=== PATIENT | male | born 1960 | race Caucasian/White ===

== ENCOUNTER 2019-02-05 12:46 | Observation (INO) ==
[2019-02-05] MEDS ORDERED: IOPAMIDOL 100 ML BOTTLE IV ONE (12:47)
[2019-02-05] MEDS ORDERED: ONDANSETRON 4 MG/2 ML VIAL IV ONE ×2 (13:06→17:31)
[2019-02-05] MEDS ORDERED: 0.9 % SODIUM CHLORIDE 1,000 ML IV ONE (13:06)
[2019-02-05] MEDS ORDERED: LACTATED RINGERS 1,000 ML IV ONE ×2 (13:25→15:11)
[2019-02-05] MEDS: HYDROmorphone 2 MG/ML VIAL IV PRN ×3 (13:48→18:41)
[2019-02-05 14:06] LABS: ALT/SGPT 19 U/l (0-40); AST/SGOT 23 U/l (0-37); Albumin 4.3 gm/dL (3.2-5.2); Albumin/Globulin Ratio 1.3 (1.0-2.3); Alkaline Phosphatase 69 U/L (39-117); Bilirubin,Total 0.5 mg/dL (0.0-1.0); Blood Urea Nitrogen 13 mg/dl (6-20); Calcium 9.4 mg/dl (8.6-10.4); Carbon Dioxide 19 mmol/L (22-30); Chloride 103 mmol/L (96-108); Globulin 3.4 gm/dL (2.2-3.7); Glomerular Filtration Rate 94; Glucose 133 mg/dL (70-105)
[2019-02-05 14:07] LABS: Basophils % (Auto) 0 % (0.0-2.0); Hematocrit 42.7 % (41.0-55.0); Hemoglobin 14.3 g/dL (13.5-16.5); Mean Cell Volume 82.9 fL (80.0-100.0); Mean Corpuscular HGB Conc 33.5 g/dL (31.0-36.0); Mean Platelet Volume 9.2 fL (7.4-10.4); Platelet Count 177 K/mcL (140-440); RBC 5.16 M/mcL (4.50-5.90)
--- NOTE | 2019-02-05 15:06 | Cat Scan Report ---
CLINICAL INFORMATION: Nausea and vomiting. Severe abdominal pain. TECHNIQUE: Axial postcontrast enhanced images through the abdomen and pelvis. Sagittal and coronal reformatted images COMPARISON: Previous examination dated 07/31/2013 FINDINGS: Lung bases: Negative. No parenchymal infiltrate or mass. No pleural fluid. There is no pericardial fluid. Liver: Negative. No focal intrahepatic abnormality. Liver contour is smooth. No evidence for cirrhosis. Gallbladder, biliary: No calcified gallstones. No dilated bile ducts Spleen: Negative. No splenomegaly. Normal enhancement splenic and portal veins Pancreas: Negative. No pancreatic mass. No peripancreatic abnormality Adrenal glands: Negative Kidneys, ureters, bladder: Kidneys are negative. No solid or cystic mass. No hydronephrosis. No hydroureter. No renal or ureteral stones. No bladder calculi Gastrointestinal: There is sigmoid diverticulosis. No pericolonic inflammatory change. No evidence for diverticulitis. Previous appendectomy. No detectable colonic mass. Small bowel is negative. No mechanical small bowel obstruction. Stomach is negative. No gastric distention. Lymphatic: No retroperitoneal or mesenteric lymphadenopathy. No inguinal adenopathy musculoskeletal: Normal lumbar vertebral body heights. No compression deformities. Sacrum and pelvis are negative. Hips are negative. Abdominal wall: There is a right inguinal hernia containing only mesenteric fat. There is infiltration of subcutaneous fat surrounding the right femoral artery and vein. No focal fluid collection. There is no pathologic adenopathy. No evidence for pseudoaneurysm or hematoma. Significance is not certain. Clinical correlation for history of previous femoral puncture recommended. Vascular: Atherosclerotic calcification of the abdominal aorta. No abdominal aortic aneurysm IMPRESSION: 1. Infiltration of subcutaneous fat in the right lower quadrant and surrounding the right femoral artery and vein 2. No acute intra-abdominal abnormality Interpreted and Authenticated by: Dayron Chen 02/05/19
[2019-02-05] MEDS ORDERED: PROMETHAZINE 25 MG/ML VIAL IV ONE (15:11)
[2019-02-05] MEDS ORDERED: PROCHLORPERAZINE 10 MG/2 ML VIAL IV ONE (17:31)
--- NOTE | 2019-02-05 17:34 | Emergency Department Note ---
Nausea/Vomiting/Diarrhea HPI - General Chief complaint: Nausea/Vomiting/Diarrhea Stated complaint: nausea/vomiting x3 hours Time Seen by Provider: 02/05/19 13:00 Source: patient Mode of arrival: wheelchair Limitations: no limitations - History of Present Illness HPI Narrative: 58-year-old male presents with sudden onset of nausea and vomiting and severe abdominal pain. Onset a couple hours prior to arrival. Arrives with significant diaphoresis. Holding abdomen. Appears in pain. Nausea and vomiting present. states he gets this from time to time. Has had full work-ups done and they have never been able to figure out why. States on the l ast occurrence they thought he had a gastric ulcer and they put him on some medication that seemed to help but they recently had to change that medication, 3 days ago, due to being placed on Plavix and she has no idea if that could be causing this. A week ago he did have a stent placed to the right leg over at [facility] by Dr. Webster. This was for vascular issues. He has some bruising to the right groin area but states he is doing well in that regard. States just this nausea and vomiting and abdominal pain started out of nowhere. No diarrhea. No fever chills. No dysuria or frequency. - Related Data Home Medications Medication Instructions Recorded Confirmed ibuprofen 800 mg tablet 800 mg PO QPM tab 12/19/18 02/05/19 Aspirin [Lite Coat Aspirin] 325 mg PO DAILY 02/05/19 02/05/19 Clopidogrel Bisulfate [Plavix] 75 mg PO DAILY 02/05/19 02/05/19 Famotidine [Pepcid] 20 mg PO BID 02/05/19 02/05/19 Previous Rx's Medication Instructions Recorded rosuvastatin 10 mg tablet 10 mg PO QDAY #90 tab 01/08/19 varenicline 0.5 mg (11)-1 mg (42) See Rx Instructions PO PER PKG DIR 01/29/19 tablets in a dose pack #53 tab Allergies Allergy/AdvReac Type Severity Reaction Status Date / Time NO KNOWN ALLERGIES Allergy Unknown None Stated Uncoded 01/08/19 08:31 Review of Systems All systems ED: reviewed and negative except as stated. Past Medical History - Past Medical History [facility] Narrative: Medical History (Last Reviewed 12/25/18 @ 11:51 by Beck Quinn PA-C) Influenza vaccine refused (Chronic) Stomach ulcer (Chronic) Joint pain (Chronic) Muscle pain (Chronic) Past Surgical History (Last Reviewed 12/25/18 @ 11:51 by MARIA ISABEL Jensen) History of appendectomy (Chronic) - Social History smoking status: Current every day smoker Physical Exam Limitations: no limitations General appearance: alert, other (Profusely diaphoretic and vomiting) Head: atraumatic, normocephalic, normal inspection Eye: Present: normal appearance. Absent: conjunctival injection ENT: Present: mucous membranes moist Chest: Present: symmetric chest wall rise Respiratory: Absent: respiratory distress, rales/crackles, accessory muscle use Cardiovascular: Present: regular rate, normal heart sounds Abdominal: Present: soft, tenderness (difuse), normal bowel sounds. Absent: distention, guarding, rebound, mass Extremities: Present: normal inspection, other (echymosis right groin. no rednesss or warmth, non tender) Neurological: Present: alert, oriented X3 Psychiatric: Present: normal affect, normal mood Skin: Present: diaphoretic, normal color Course Course Narrative: @1810 Dr. Purcell, hospitalist accepts pt. Vital Signs Temperature 98.5 F 02/05/19 12:46 Pulse Rate 91 H 02/05/19 12:46 Respiratory Rate 18 02/05/19 12:46 Blood Pressure 178/84 02/05/19 12:46 Pulse Oximetry (%) 100 02/05/19 12:46 Temperature 97.9 F 02/05/19 13:58 Pulse Rate 82 02/05/19 17:16 Respiratory Rate 20 02/05/19 13:58 Blood Pressure 171/84 02/05/19 17:16 Pulse Oximetry (%) 100 02/05/19 17:16 Nausea/Vomiting/Diarrhea - Lab Data Lab results reviewed: Yes I reviewed the patient's lab results. Result diagrams: 02/05/19 13:07 02/05/19 13:07 Lab Results 02/05/19 02/05/19 Range/Units 13:07 13:07 WBC 14.0 H (4.5-11.0) K/mcL RBC 5.16 (4.50-5.90) M/mcL Hgb 14.3 (13.5-16.5) g/dL Hct 42.7 (41.0-55.0) % MCV 82.9 (80.0-100.0) fL MCH 27.8 (26.0-34.0) pg MCHC 33.5 (31.0-36.0) g/dL RDW 14.0 (11.5-14.5) % Plt Count 177 (140-440) K/mcL MPV 9.2 (7.4-10.4) fL Gran % 82.0 H (38.0-78.0) % Lymph % (Auto) 8.0 L (15.5-49.0) % Preston % (Auto) 9.0 (1.0-12.0) % Eos % (Auto) 1.0 (0.0-7.0) % Baso % (Auto) 0 (0.0-2.0) % Sodium 140 (133-145) mmol/L Potassium 3.9 (3.3-5.1) mmol/L Chloride 103 (96-108) mmol/L Carbon Dioxide 19 L (22-30) mmol/L Anion Gap 18.0 H (8-16) BUN 13 (6-20) mg/dl Creatinine 0.9 (0.7-1.2) mg/dl GFR Calculation 94 Glucose 133 H (70-105) mg/dL Calcium 9.4 (8.6-10.4) mg/dl Total Bilirubin 0.5 (0.0-1.0) mg/dL AST 23 (0-37) U/l ALT 19 (0-40) U/l Alkaline Phosphatase 69 (39-117) U/L Total Protein 7.7 (5.9-8.4) gm/dL Albumin 4.3 (3.2-5.2) gm/dL Globulin 3.4 (2.2-3.7) gm/dL Albumin/Globulin Ratio 1.3 (1.0-2.3) - Radiology Data Radiology results reviewed: Yes I reviewed the patient's radiology results. Disposition Pt seen by MOVEMAN/PA only: Yes Clinical Impression: Cyclical vomiting Disposition: Xfer As Outpt/Obs ([facility]) Condition: Fair Referrals: Beck Quinn PA-C [Primary Care Provider] - Time of Disposition: 18:19
[2019-02-05] MEDS ORDERED: LORazepam 2 MG/ML VIAL IV ONE (17:35)
[2019-02-05 18:30] LABS: Creatine Kinase MB 1.9 ng/ml (0-4.9)
--- NOTE | 2019-02-05 19:25 | Internal Med History&Physical ---
Medical - H&P: HPI Patient information: Note initiated : 02/05/19 at 7:22 pm Service Date, if different from initiated Date: [] Patient: Zaire Rowley a 58 y/o M admitted on 02/05/19 for nausea/vomiting x3 hours. Chief Complaint: [] Chief complaint: Intractable nausea, weakness and abdominal pain History of present illness: Mr. Rowley is a 58 year old M with a known history of peripheral vascular disease status post iliac and femoral artery stenting last Monday by Dayron Webster. Patient has been recovering well until Monday he noticed swelling along with bruising at the catheter insertion site and was evaluated in the ER. Patient was discharged after initial work-up however today he started experiencing sudden onset of nausea with intractable multiple episodes of vomiting associated diaphoresis abdominal pain. No associated diarrhea. Denies associated fever chills. He does not endorses sick contacts or taking new medication other than Plavix and aspirin prescribed after stent placement. No associated dysuria, flank tenderness. He smokes actively and planning to quit. Denies excessive alcoholism. He endorses 2 prior similar episodes that have lasted from 12 to 48 hours most recent being a year ago. He lives with his girlfriend and usually fairly active Initial work-up in the ER was consistent with hypertensive urgency with systolics over 180 active diaphoresis headache and nausea. Patient received crystalloid/antiemetics without improvement. A CT abdomen was essentially unremarkable for acute process. Lactic acid elevated at 3. Subsequently hospitalist service was consulted for admission At the time of evaluation patient is drowsy under the effect of opioids. He was able to endorse history as above. He denies lower extremity cramps or pain. He rates abdominal pain as 6 out of 10 to 8 out of 10 currently a 2 out of 10 after initiation of opioids. Denies associated diarrhea/headache/photophobia but endorses to heartburn. Review of systems A 10 point review of system was performed and is negative except for one disc ussed above Medical - H&P: PMH Medical history: Influenza vaccine refused (Chronic) Stomach ulcer (Chronic) Joint pain (Chronic) Muscle pain (Chronic) Surgical History History of appendectomy (Chronic) Family History Grandmother Arthritis Type 2 diabetes mellitus High blood pressure Grandfather Skin cancer High blood pressure Stroke Tuberculosis Father High blood pressure Heart attack Mother High blood pressure Sister High blood pressure Brother Thyroid disease Social History marital status: single occupational status: unemployed smoking status: Current every day smoker alcohol intake frequency: holiday/special occasion only substance use type: marijuana Medical - H&P: Meds Home Medications Medication Instructions Recorded Confirmed Type ibuprofen 800 mg tablet 800 mg PO QPM tab 12/19/18 02/05/19 History rosuvastatin 10 mg tablet 10 mg PO QDAY #90 tab 01/08/19 02/05/19 Rx varenicline 0.5 mg (11)-1 mg (42) See Rx Instructions PO PER PKG DIR 01/29/19 02/05/19 Rx tablets in a dose pack #53 tab Aspirin [Lite Coat Aspirin] 325 mg PO DAILY 02/05/19 02/05/19 History Clopidogrel Bisulfate [Plavix] 75 mg PO DAILY 02/05/19 02/05/19 History Famotidine [Pepcid] 20 mg PO BID 02/05/19 02/05/19 History Allergies Allergy/AdvReac Type Severity Reaction Status Date / Time NO KNOWN ALLERGIES Allergy Unknown None Stated Uncoded 01/08/19 08:31 Medical - H&P: Exam - Constitutional Vitals: Temp Pulse Resp BP Pulse Ox 97.9 F 82 20 171/84 100 02/05/19 19:00 02/05/19 19:00 02/05/19 19:00 02/05/19 19:00 02/05/19 19:00 General appearance: moderate distress Exam: Sedated but able to respond to verbal commands Alert oriented Head normocephalic Oral cavity dry No ear nose discharge Eye movement symmetrical Neck no lymphadenopathy or bruit S1-S2 hyperdynamic no murmur Diminished breath sounds bases Abdomen minimally tender epigastric area but nondistended with normal bowel sounds Lower extremity right groin bruising extending from the inguinal area to lateral aspect of scrotum. No fluctuance. Femoral pulse palpated and no obvious aneurysmal dilatation Skin otherwise no suspicious lesion Psych anxious/sedated Neuro nonfocal Medical - H&P: Reslt - Labs CBC & Chem 7: 02/05/19 13:07 02/05/19 13:07 Labs: Short CBC 02/05/19 Range/Units 13:07 WBC 14.0 H (4.5-11.0) K/mcL Hgb 14.3 (13.5-16.5) g/dL Hct 42.7 (41.0-55.0) % Plt Count 177 (140-440) K/mcL BMP 02/05/19 13:07 Sodium 140 Potassium 3.9 Chloride 103 Carbon Dioxide 19 L BUN 13 Creatinine 0.9 Glucose 133 H Calcium 9.4 Cardiac Enzymes 02/05/19 02/05/19 Range/Units Unknown Unknown Total Creatine Kinase 110 (24-195) IU/L CK-MB (CK-2) 1.9 (0-4.9) ng/ml Troponin T < 0.01 (0-0.03) ng/ml Liver Function 02/05/19 Range/Units 13:07 Total Bilirubin 0.5 (0.0-1.0) mg/dL AST 23 (0-37) U/l ALT 19 (0-40) U/l Alkaline Phosphatase 69 (39-117) U/L Albumin 4.3 (3.2-5.2) gm/dL Medical - H&P: A/P (1) Hypertensive urgency Current visit: Yes Status: Acute * Hypertensive urgency with active diaphoresis/nausea vomiting and elevated lactate. Evidence of endorgan compromise. Start nicardipine drip and titrate to goal systolics around 140. * Intractable nausea vomiting-continue bowel rest/antiemetics/crystalloids. If persistent GI consult for upper endoscopy. Negative abdominal CT for acute process. * Severe volume depletion with elevated lactate-continue crystalloid/bowel rest. * History of peripheral artery disease on aspirin Plavix * History of GERD continue IV PPI * Full code * Prophylaxis heparin Plan * Observation telemetry admission * Nicardipine drip titrate to systolics 140 * Antiemetics/crystalloids/bowel rest * GI consult if no improvement in 24 hours * Pre-existing well condition management on home medications * PT OT/nutrition support
[2019-02-05] MEDS ORDERED: 0.9 % SODIUM CHLORIDE 1,000 ML IV SCH (20:24)
[2019-02-05] MEDS ORDERED: HYDROmorphone 2 MG/ML VIAL IV PRN (20:24)
[2019-02-05] MEDS ORDERED: MELATONIN 3 MG TABLET PO PRN (20:24)
[2019-02-05] MEDS ORDERED: POTASSIUM CHLORIDE 20 MEQ PACKET PO PRN (20:24)
[2019-02-05] MEDS ORDERED: PROMETHAZINE 25 MG/ML VIAL IV PRN (20:24)
[2019-02-05] MEDS ORDERED: hydrALAZINE 20 MG/ML VIAL IV PRN (20:24)
[2019-02-05] MEDS ORDERED: ONDANSETRON 4 MG/2 ML VIAL IV PRN (20:24)
[2019-02-05] MEDS ORDERED: MAGNESIUM SULFATE 2 GM/50 ML BAG IV PRN (20:24)
[2019-02-05] MEDS ORDERED: ACETAMINOPHEN 325 MG TABLET PO PRN (20:24)
[2019-02-05] MEDS: niCARdipine 25 MG in 0.9 % SODIUM CHLORIDE 240 ML IV SCH ×2 (20:47→23:05)
[2019-02-05] MEDS: 0.9 % SODIUM CHLORIDE 1,000 ML IV SCH (20:49)
[2019-02-05] MEDS ORDERED: SENNOSIDES/DOCUSATE SODIUM 1 TAB TABLET PO SCH (21:00)
[2019-02-05] MEDS: 0.9 % SODIUM CHLORIDE 10 ML SYRINGE IV SCH (22:40)
[2019-02-05] MEDS ORDERED: PANTOPRAZOLE 40 MG TABLET ONE (22:40)
[2019-02-05] MEDS: PANTOPRAZOLE 40 MG TABLET PO SCH (22:40)
[2019-02-05] MEDS: DOCUSATE SODIUM 100 MG CAPSULE PO SCH (22:42)
[2019-02-05] MEDS: HEPARIN 5,000 UNIT/ML VIAL SQ SCH (22:42)
[2019-02-05] MEDS: FAMOTIDINE 20 MG TABLET PO SCH (22:47)
[2019-02-06] MEDS: niCARdipine 25 MG in 0.9 % SODIUM CHLORIDE 240 ML IV SCH ×2 (00:54→03:18)
[2019-02-06] MEDS: 0.9 % SODIUM CHLORIDE 10 ML SYRINGE IV SCH ×2 (04:53→13:56)
[2019-02-06 05:31] LABS: Hematocrit 38.3 % (41.0-55.0); Hemoglobin 12.8 g/dL (13.5-16.5); Mean Cell Volume 83.2 fL (80.0-100.0); Mean Corpuscular HGB Conc 33.4 g/dL (31.0-36.0); Mean Platelet Volume 8.8 fL (7.4-10.4); Platelet Count 180 K/mcL (140-440); RBC 4.61 M/mcL (4.50-5.90); Red Cell Distribution Width 13.9 % (11.5-14.5)
[2019-02-06 05:58] LABS: ALT/SGPT 14 U/l (0-40); AST/SGOT 12 U/l (0-37); Albumin 3.6 gm/dL (3.2-5.2); Albumin/Globulin Ratio 1.2 (1.0-2.3); Alkaline Phosphatase 61 U/L (39-117); Bilirubin,Direct < 0.2 mg/dL (0.0-0.3); Bilirubin,Total 0.2 mg/dL (0.0-1.0); Blood Urea Nitrogen 10 mg/dl (6-20); Calcium 8.8 mg/dl (8.6-10.4); Carbon Dioxide 21 mmol/L (22-30); Chloride 105 mmol/L (96-108); Glomerular Filtration Rate 104; Glucose 121 mg/dL (70-105); Lactate Dehydrogenase 160 U/L (94-250); Phosphorous 3.7 mg/dL (2.7-4.5); Triglycerides 59 mg/dl (<150); Uric Acid 3.4 mg/dL (2.5-8.0)
[2019-02-06 06:30] LABS: Lymphocytes % 17 % (15-49); Monocytes % (Manual) 6 % (1-12); Platelet Estimate NORMAL (NORMAL); RBC Morphology NORMAL (NORMAL); Segmented Neutrophils % 77 % (38-78)
[2019-02-06] MEDS: 0.9 % SODIUM CHLORIDE 1,000 ML IV SCH (06:49)
[2019-02-06] MEDS: PANTOPRAZOLE 40 MG TABLET PO SCH (07:17)
[2019-02-06] MEDS: DOCUSATE SODIUM 100 MG CAPSULE PO SCH (07:36)
[2019-02-06] MEDS: HEPARIN 5,000 UNIT/ML VIAL SQ SCH (08:14)
[2019-02-06] MEDS: FAMOTIDINE 20 MG TABLET PO SCH (08:22)
[2019-02-06] MEDS ORDERED: CLOPIDOGREL 75 MG TABLET PO SCH (09:00)
[2019-02-06] MEDS ORDERED: MULTIVIT,THER IRON,CA,FA & MIN 1 TABLET PO SCH (09:00)
[2019-02-06] MEDS ORDERED: amLODIPine 5 MG TABLET PO SCH (09:00)
[2019-02-06] MEDS ORDERED: ROSUVASTATIN 10 MG TABLET PO SCH (09:00)
[2019-02-06] MEDS ORDERED: ASPIRIN 325 MG ENTERIC COATED TABLET PO SCH (09:00)
[2019-02-06] MEDS ORDERED: ATORVASTATIN 20 MG TABLET PO SCH (09:00)
[2019-02-06] MEDS ORDERED: niCARdipine 25 MG in 0.9 % SODIUM CHLORIDE 240 ML IV PRN (09:15)
--- NOTE | 2019-02-06 12:18 | Discharge Summary ---
Medical - DS: Prov Patient information: Note initiated : 02/06/19 at 12:15 pm Service Date, if different from initiated Date: [] Patient: Zaire Rowley 58 y/o M admitted on 02/05/19 for nausea/vomiting x3 hours. Chief Complaint: [] Date of admission: 02/05/19 18:59 Discharge date: 02/06/19 Primary care physician: Beck Quinn Consults: 02/06/19 07:33 Consult to Physician [CONS] Routine Comment: Consulting Provider: Prabhakar Purcell Reason For Exam: Physician to Consult Medical - DS: Meds - Discharge Medications Prescriptions: amLODIPine [Norvasc] 5 mg PO DAILY #30 tab Transmission Status: Sent to [facility] Pantoprazole [Protonix] 40 mg PO BIDAC #30 tab Transmission Status: Pending to [facility] Active and Home Medications: Home Medications ibuprofen 800 mg tablet 800 mg PO QPM tab 12/19/18 [History Confirmed 02/05/19 Last Taken Unknown] rosuvastatin 10 mg tablet 10 mg PO QDAY #90 tab 01/08/19 [Rx Confirmed 02/05/19 Last Taken Unknown] varenicline 0.5 mg (11)-1 mg (42) tablets in a dose pack See Rx Instructions PO PER PKG DIR #53 tab 01/29/19 [Rx Confirmed 02/05/19 Last Taken Unknown] Aspirin [Lite Coat Aspirin] 325 mg PO DAILY 02/05/19 [History Confirmed 02/05/19 Last Taken Unknown] Clopidogrel Bisulfate [Plavix] 75 mg PO DAILY 02/05/19 [History Confirmed 02/05/19 Last Taken Unknown] Famotidine [Pepcid] 20 mg PO BID 02/05/19 [History Confirmed 02/05/19 Last Taken Unknown] Pantoprazole [Protonix] 40 mg PO BIDAC #30 tab 02/06/19 [Rx Last Taken Unknown] amLODIPine [Norvasc] 5 mg PO DAILY #30 tab 02/06/19 [Rx Last Taken Unknown] Medical - DS: Hosp Hospital Course: Discharge diagnosis * Hypertensive urgency with active diaphoresis/nausea vomiting and elevated lactate. Evidence of endorgan compromise. Clinically improved on nicardipine drip. Patient weaned off drip and now transitioned to oral antihypertensive amlodipine 5 mg. Systolics down to 130/76. Recommend continuing amlodipine 5 mg and follow-up with primary care physician in 5 to 7 days for optimization of hypertension * Intractable nausea vomiting-secondary to above. Clinically resolved. * Severe volume depletion with elevated lactate-clinically resolved with aggressive crystalloid/bowel rest. Lactic acid down from from 3-0.6 * History of PAD status post femoral stenting by Dayron Webster. Continue aspirin Plavix * History of GERD continue oral PPI Brief hospital course Mr. Rowley is a 58 year old M with a known history of peripheral vascular disease status post iliac and femoral artery stenting last Monday by Dayron Webster. Patient has been recovering well until Monday he noticed swelling along with bruising at the catheter insertion site and was evaluated in the ER. Patient was discharged after initial work-up however today he started experiencing sudden onset of nausea with intractable multiple episodes of vomiting associated diaphoresis abdominal pain. No associated diarrhea. Denies associated fever chills. He does not endorses sick contacts or taking new medication other than Plavix and aspirin prescribed after stent placement. No associated dysuria, flank tenderness. He smokes actively and planning to quit. Denies excessive alcoholism. He endorses 2 prior similar episodes that have lasted from 12 to 48 hours most recent being a year ago. He lives with his girlfriend and usually fairly active Initial work-up in the ER was consistent with hypertensive urgency with systolics over 180 active diaphoresis headache and nausea. Patient received crystalloid/antiemetics without improvement. A CT abdomen was essentially unremarkable for acute process. Lactic acid elevated at 3. Subsequently hospitalist service was consulted for admission At the time of evaluation patient is drowsy under the effect of opioids. He was able to endorse history as above. He denies lower extremity cramps or pain. He rates abdominal pain as 6 out of 10 to 8 out of 10 currently a 2 out of 10 after initiation of opioids. Denies associated diarrhea/headache/photophobia but endorses to heartburn. 02/06-patient doing well. Tolerating diet. Nausea resolved. Systolics much improved. Off nicardipine drip. Started on amlodipine. Recommend follow-up with primary care physician for continued optimization of hypertension. Discharging with advice as below Discharge diagnosis: . - Time Spent with Patient Total time spent providing and/or coordinating discharge services: Greater than 30 minutes Medical - DS: Exam - Constitutional Vitals: Vital Signs Temp Pulse Pulse Resp BP BP Pulse Ox 02/06/19 12:01 98.2 F 16 130/76 95 02/06/19 12:00 98 02/06/19 11:01 146/75 94 02/06/19 11:00 96 02/06/19 10:02 99 02/06/19 10:01 164/82 97 02/06/19 09:01 148/76 100 02/06/19 08:25 99 F 18 141/73 97 02/06/19 07:32 99 02/06/19 07:31 19 136/68 97 02/06/19 07:23 96 02/06/19 07:01 17 118/76 98 02/06/19 06:01 81 141/84 97 02/06/19 05:32 82 127/68 97 02/06/19 05:01 93 H 159/91 88 L 02/06/19 04:46 86 142/72 94 02/06/19 04:31 88 139/73 92 02/06/19 04:16 91 H 131/76 95 02/06/19 04:14 99.4 F H 88 134/75 95 02/06/19 04:01 89 124/68 96 02/06/19 03:46 88 133/68 95 02/06/19 03:31 89 139/67 94 02/06/19 03:16 93 H 155/72 93 02/06/19 03:00 92 H 123/71 91 02/06/19 02:46 97 H 128/68 93 02/06/19 02:31 101 H 155/76 95 02/06/19 02:16 101 H 155/76 94 02/06/19 02:01 102 H 155/82 95 02/06/19 01:46 101 H 150/76 96 02/06/19 01:31 104 H 166/76 95 02/06/19 01:16 100 H 170/78 97 02/06/19 01:09 95 H 123/69 91 02/06/19 01:03 94 H 127/65 95 02/06/19 01:01 95 H 117/50 91 02/06/19 01:00 95 H 92 02/06/19 00:46 104 H 168/83 95 02/06/19 00:31 107 H 183/68 96 02/06/19 00:18 104 H 18 177/79 97 02/06/19 00:01 98.7 F 104 H 18 147/77 95 02/05/19 23:46 106 H 183/73 94 02/05/19 23:31 108 H 185/74 96 02/05/19 23:21 104 H 183/77 95 02/05/19 23:16 105 H 147/77 95 02/05/19 23:11 104 H 175/77 95 02/05/19 23:06 104 H 177/74 95 02/05/19 23:01 104 H 168/75 92 02/05/19 22:56 102 H 172/83 94 02/05/19 22:51 103 H 170/78 95 02/05/19 22:46 104 H 166/82 94 02/05/19 22:41 103 H 178/76 93 02/05/19 22:36 104 H 158/75 93 02/05/19 22:31 108 H 177/85 95 02/05/19 22:26 105 H 179/81 95 02/05/19 22:21 109 H 164/89 97 02/05/19 22:16 202/88 02/05/19 22:11 109 H 173/105 96 02/05/19 22:06 108 H 199/84 96 02/05/19 22:01 105 H 184/80 95 02/05/19 21:56 103 H 179/74 96 02/05/19 21:51 102 H 184/83 96 02/05/19 21:46 99 H 184/80 96 02/05/19 21:41 100 H 186/82 95 02/05/19 21:36 99 H 179/77 96 02/05/19 21:31 96 H 179/85 95 02/05/19 21:26 95 H 184/85 95 02/05/19 21:21 95 H 179/84 95 02/05/19 21:16 94 H 186/88 96 02/05/19 21:11 93 H 180/88 97 02/05/19 21:06 91 H 188/91 96 02/05/19 21:02 87 207/85 97 02/05/19 20:57 87 187/96 92 02/05/19 20:48 88 181/86 93 02/05/19 20:18 99.0 F 92 H 18 193/92 100 02/05/19 19:03 97.9 F 92 H 16 192/94 98 02/05/19 19:00 97.9 F 82 20 171/84 100 02/05/19 18:59 97.9 F 92 H 16 192/94 98 02/05/19 17:16 82 171/84 100 02/05/19 17:01 82 173/86 100 02/05/19 16:46 82 171/89 100 02/05/19 16:31 82 171/91 96 02/05/19 16:16 81 173/86 93 02/05/19 16:01 80 178/83 100 02/05/19 15:46 81 182/81 95 02/05/19 15:31 81 179/82 90 02/05/19 15:16 83 175/87 97 02/05/19 15:01 94 H 185/84 100 02/05/19 14:46 87 178/88 99 02/05/19 14:38 85 179/83 99 02/05/19 13:58 97.9 F 84 20 179/83 96 02/05/19 13:46 85 147/80 99 02/05/19 13:31 83 179/89 98 02/05/19 13:16 86 174/76 98 02/05/19 13:01 90 161/81 98 02/05/19 12:56 87 178/84 98 02/05/19 12:46 98.5 F 91 H 18 178/84 100 Intake and Output 02/05/19 02/06/19 02/06/19 21:59 05:59 13:59 Intake Total 2065 714 1360 Output Total 525 975 600 Balance 1540 -261 760 Intake: IV 2065 714 1000 Sodium Chloride 0.9% 1,000 ml @ 1000 100 mls/hr IV .Q10H AUDI Rx#: [id number] Lactated Ringers 1,000 ml @ 2000 Wide Open IV BOLUS ONE Rx#: [id number] Cardene 25 MG In Sodium 65 714 0 Chloride 0.9% 240 ml @ 5 MG/HR 50 mls/hr IV ONCE AUDI Rx#: [id number] Oral 360 Output: Void Amount 525 975 600 Other: Urine Appearance Clear Urine Color Bright Yellow Weight 237 lb 3.2 oz Medical - DS: Data Labs on day of discharge: Labs from last 24 hours 02/06/19 02/06/19 02/06/19 04:10 04:10 04:10 WBC 11.0 RBC 4.61 Hgb 12.8 L Hct 38.3 L MCV 83.2 MCH 27.8 MCHC 33.4 RDW 13.9 Plt Count 180 MPV 8.8 Gran % Lymph % (Auto) Wetzel % (Auto) Eos % (Auto) Baso % (Auto) Total Counted 100 Seg Neutrophils % 77 Band Neutrophils % Not Reportable Lymphocytes % 17 Monocytes % (Manual) 6 Platelet Estimate Normal RBC Morphology Normal VBG Lactic Acid 0.6 Sodium 141 Potassium 3.5 Chloride 105 Carbon Dioxide 21 L Anion Gap 15.0 BUN 10 Creatinine 0.7 GFR Calculation 104 Glucose 121 H Uric Acid 3.4 Calcium 8.8 Phosphorus 3.7 Magnesium 1.8 Total Bilirubin 0.2 Direct Bilirubin < 0.2 GGT 18 AST 12 ALT 14 Alkaline Phosphatase 61 Lactate Dehydrogenase 160 Total Creatine Kinase CK-MB (CK-2) Troponin T Total Protein 6.6 Albumin 3.6 Globulin 3.0 Albumin/Globulin Ratio 1.2 Triglycerides 59 Procalcitonin 02/05/19 02/05/19 02/05/19 Unknown Unknown 20:40 WBC RBC Hgb Hct MCV MCH MCHC RDW Plt Count MPV Gran % Lymph % (Auto) Wetzel % (Auto) Eos % (Auto) Baso % (Auto) Total Counted Seg Neutrophils % Band Neutrophils % Lymphocytes % Monocytes % (Manual) Platelet Estimate RBC Morphology VBG Lactic Acid Sodium Potassium Chloride Carbon Dioxide Anion Gap BUN Creatinine GFR Calculation Glucose Uric Acid Calcium Phosphorus Magnesium Total Bilirubin Direct Bilirubin GGT AST ALT Alkaline Phosphatase Lactate Dehydrogenase Total Creatine Kinase 110 CK-MB (CK-2) 1.9 Troponin T < 0.01 Total Protein Albumin Globulin Albumin/Globulin Ratio Triglycerides Procalcitonin < 0.05 02/05/19 02/05/19 02/05/19 18:10 13:07 13:07 WBC 14.0 H RBC 5.16 Hgb 14.3 Hct 42.7 MCV 82.9 MCH 27.8 MCHC 33.5 RDW 14.0 Plt Count 177 MPV 9.2 Gran % 82.0 H Lymph % (Auto) 8.0 L Wetzel % (Auto) 9.0 Eos % (Auto) 1.0 Baso % (Auto) 0 Total Counted Seg Neutrophils % Band Neutrophils % Lymphocytes % Monocytes % (Manual) Platelet Estimate RBC Morphology VBG Lactic Acid 3.0 H Sodium 140 Potassium 3.9 Chloride 103 Carbon Dioxide 19 L Anion Gap 18.0 H BUN 13 Creatinine 0.9 GFR Calculation 94 Glucose 133 H Uric Acid Calcium 9.4 Phosphorus Magnesium Total Bilirubin 0.5 Direct Bilirubin GGT AST 23 ALT 19 Alkaline Phosphatase 69 Lactate Dehydrogenase Total Creatine Kinase CK-MB (CK-2) Troponin T Total Protein 7.7 Albumin 4.3 Globulin 3.4 Albumin/Globulin Ratio 1.3 Triglycerides Procalcitonin Medical - DS: A/P - Patient/Caregiver Discharge Instructions Diet: Low Sodium (2gm) Additional Instructions: Follow primary care physician in 5 to 7 days continue amlodipine 5 mg daily Return to ER if worsening nausea vomiting headache noted Prescriptions: amLODIPine [Norvasc] 5 mg PO DAILY #30 tab Transmission Status: Sent to [facility] Pantoprazole [Protonix] 40 mg PO BIDAC #30 tab Transmission Status: Pending to [facility] - Problem Maintenance (1) Hypertensive urgency Status: Acute - Follow up Plan Follow up with: Beck Quinn PA-C [Primary Care Provider] - 02/11/19 11:00 am (Please check in at 10:45 am) Disposition: Home, Self-Care Care Plan Goals: This discharge packet is provided to you to help keep you informed about your care. We want to ensure you get everything you need when you go home. You will also be receiving a call from us in a few days to follow up with you and see how you are doing since your discharge. This gives us a chance to listen to any concerns you maybe experiencing since you were discharged or any additional needs you may have, as well as providing us feedback on your care experience. We strive to always provide excellent care and thank you for your feedback and for choosing [facility]. Prognosis: Fair Rehab Potential: Fair I certify that the patient requires SNF services: No Overall status at discharge: patient is progressing back to baseline Medical - DS: Qual - VTE Deep Vein Thrombosis/Pulmonary Embolism Present on Admission: No
== END 2019-02-06 15:30 | disposition home or self-care (01) ==
LOC: ED 12:46 → MEDSUR 12:46 → ICU 20:05
PROVIDERS: ADMIT Internal Medicine; ATTEND Internal Medicine

== ENCOUNTER 2024-01-24 09:18 | Observation (INO) ==
[2024-01-24 09:45] LABS: Basophils # (Auto) 0.05 K/mcL (0.00-0.30); Basophils % (Auto) 0.5 % (0.0-2.0); Eosinophils # (Auto) 0.47 K/mcL (0.00-0.70); Eosinophils % (Auto) 4.8 % (0.0-7.0); Hematocrit 45.2 % (40.1-51.0); Hemoglobin 14.8 g/dL (13.7-17.5); Lymphocytes # (Auto) 1.75 K/mcL (1.50-4.80); Lymphocytes % (Auto) 17.9 % (15.5-49.0); Mean Cell Volume 80.7 fL (80.0-100.0); Mean Corpuscular HGB Conc 32.7 g/dL (31.0-36.0); Mean Platelet Volume 10.7 fL (8.8-12.5); Monocytes # (Auto) 1.02 K/mcL (0.10-0.90); Monocytes % (Auto) 10.5 % (1.0-12.0); Neutrophils % (Auto) 65.9 % (38.0-78.0); Platelet Count 204 K/mcL (140-440); Red Cell Distribution Width 15.7 % (11.5-14.5); WBC 9.8 K/mcL (4.5-11.0)
[2024-01-24] MEDS: 0.9 % SODIUM CHLORIDE 1,000 ML IV ONE ×2 (09:45→15:22)
[2024-01-24] MEDS: ASPIRIN 81 MG TAB.CHEW CHEWED ONE (09:45)
[2024-01-24] MEDS: LORazepam 2 MG/ML VIAL IV ONE ×2 (09:47→12:15)
[2024-01-24] MEDS: DILTIAZEM 25 MG/5 ML VIAL IV ONE ×2 (10:03→12:48)
[2024-01-24 10:15] LABS: ALT/SGPT 15 U/L (<40); AST/SGOT 21 U/L (<40); Albumin 4.5 gm/dL (3.2-5.2); Albumin/Globulin Ratio 1.6 (1.0-2.3); Alkaline Phosphatase 90 U/L (39-117); Bilirubin,Total 0.4 mg/dL (0.1-1.0); Blood Urea Nitrogen 11 mg/dL (8-23); Calcium 9.4 mg/dL (8.6-10.4); Carbon Dioxide 23 mmol/L (22-30); Chloride 101 mmol/L (96-108); Globulin 2.8 gm/dL (2.2-3.7); Glomerular Filtration Rate 95; Glucose 163 mg/dL (70-105); Potassium 3.3 mmol/L (3.3-5.1); Sodium 140 mmol/L (133-145); Thyroid Stimulating Hormone 1.41 uIU/mL (0.27-5.01)
[2024-01-24 10:39] LABS: Free T4 (Free Thyroxine) 1.17 ng/dL (0.93-1.70)
[2024-01-24] MEDS: MAGNESIUM SULFATE 2 GM/50 ML BAG IV ONE (10:39)
[2024-01-24] MEDS: DILTIAZEM 30 MG TABLET PO ONE (11:23)
[2024-01-24] MEDS: DILTIAZEM 125 MG in DEXTROSE 5% IN WATER 100 ML IV SCH (12:48)
[2024-01-24] MEDS: POTASSIUM CHLORIDE 20 MEQ TABLET PO ONE (15:01)
[2024-01-24] MEDS ORDERED: SENNOSIDES 1 TABLET PO PRN (15:03)
[2024-01-24] MEDS ORDERED: DEXTROSE 31 GM ORAL.SUSP PO PRN (15:03)
[2024-01-24] MEDS ORDERED: ACETAMINOPHEN 325 MG TABLET PO PRN (15:03)
[2024-01-24] MEDS ORDERED: LACTULOSE 20 GM/30 ML ORAL.SOL PO PRN (15:03)
[2024-01-24] MEDS ORDERED: DEXTROSE 50% 50 ML VIAL IV PRN (15:03)
[2024-01-24] MEDS ORDERED: NICOTINE POLACRILEX 2 MG GUM CHEW/PARK PRN (15:03)
[2024-01-24] MEDS: ONDANSETRON 4 MG/2 ML VIAL IV PRN (15:23)
[2024-01-24] MEDS: DILTIAZEM 240 MG CAP.XL.24H PO SCH (15:29)
[2024-01-24 15:51] LABS: ALT/SGPT 17 U/L (<40); AST/SGOT 22 U/L (<40); Albumin 4.8 gm/dL (3.2-5.2); Albumin/Globulin Ratio 1.5 (1.0-2.3); Alkaline Phosphatase 98 U/L (39-117); Bilirubin,Direct < 0.2 mg/dL (0-0.3); Bilirubin,Total 0.5 mg/dL (0.1-1.0); Blood Urea Nitrogen 8 mg/dL (8-23); Calcium 9.3 mg/dL (8.6-10.4); Carbon Dioxide 21 mmol/L (22-30); Chloride 98 mmol/L (96-108); Globulin 3.1 gm/dL (2.2-3.7); Glomerular Filtration Rate 100; Glucose 185 mg/dL (70-105); Lactate Dehydrogenase 204 U/L (135-225); Phosphorous 1.1 mg/dL (2.5-4.5); Potassium 3.1 mmol/L (3.3-5.1); Sodium 137 mmol/L (133-145); Triglycerides 137 mg/dL (<150); Uric Acid 5.4 mg/dL (2.5-8.0)
[2024-01-24] MEDS: POTASSIUM CHLORIDE 40 MEQ in DEXTROSE 5% IN WATER 500 ML IV ONE (16:28)
[2024-01-24] MEDS: INSULIN LISPRO 1 UNIT/0.01 ML UNIT SQ SCH (17:20)
[2024-01-24] MEDS ORDERED: INSULIN GLARGINE, HUMAN 1 UNIT/0.01 ML SQ SCH (21:00)
[2024-01-24] MEDS: ATORVASTATIN 20 MG TABLET PO SCH (21:14)
[2024-01-24] MEDS: RIVAROXABAN 20 MG TABLET PO SCH (21:15)
[2024-01-24] MEDS: PREGABALIN 150 MG CAPSULE PO SCH (21:16)
[2024-01-24] MEDS: oxyCODONE IR 5 MG TABLET PO PRN (21:17)
[2024-01-24] MEDS: 0.9 % SODIUM CHLORIDE 10 ML SYRINGE IV SCH (21:20)
[2024-01-24] MEDS: INSULIN GLARGINE, HUMAN 1 UNIT/0.01 ML SQ SCH (21:45)
[2024-01-24] MEDS: DULoxetine 20 MG CAPSULE PO SCH (21:47)
[2024-01-24] MEDS: NORTRIPTYLINE 10 MG CAPSULE PO SCH (21:47)
[2024-01-24] MEDS: DILTIAZEM 125 MG/25 ML VIAL IV ONE (21:49)
[2024-01-24] MEDS: DOCUSATE SODIUM 100 MG CAPSULE PO SCH (21:49)
[2024-01-25 06:05] LABS: ALT/SGPT 12 U/L (<40); AST/SGOT 18 U/L (<40); Albumin 4.2 gm/dL (3.2-5.2); Albumin/Globulin Ratio 1.6 (1.0-2.3); Alkaline Phosphatase 84 U/L (39-117); Bilirubin,Direct < 0.2 mg/dL (0-0.3); Bilirubin,Total 0.4 mg/dL (0.1-1.0); Blood Urea Nitrogen 7 mg/dL (8-23); Carbon Dioxide 22 mmol/L (22-30); Chloride 103 mmol/L (96-108); Globulin 2.7 gm/dL (2.2-3.7); Glomerular Filtration Rate 100; Glucose 100 mg/dL (70-105); Lactate Dehydrogenase 173 U/L (135-225); Phosphorous 3.8 mg/dL (2.5-4.5); Potassium 3.4 mmol/L (3.3-5.1); Sodium 139 mmol/L (133-145); Triglycerides 137 mg/dL (<150); Uric Acid 4.9 mg/dL (2.5-8.0)
[2024-01-25] MEDS: OMEPRAZOLE 20 MG CAPSULE PO SCH (07:54)
[2024-01-25] MEDS: RIVAROXABAN 20 MG TABLET PO SCH (08:17)
[2024-01-25] MEDS: NICOTINE 21 MG PATCH TOPICAL SCH (09:16)
[2024-01-25 09:23] LABS: Hemoglobin A1C 6.6 % Hgb (4.0-6.0)
[2024-01-26] MEDS ORDERED: RIVAROXABAN 20 MG TABLET PO SCH (09:00)
== END 2024-01-25 10:10 | disposition home or self-care (01) ==
LOC: ED 09:18 → INTOOBSV 14:55 → ICU 14:55
PROVIDERS: ADMIT Internal Medicine; ATTEND Internal Medicine